=== PATIENT | male | born 1960 | race African-American/Black ===

== ENCOUNTER 2022-03-20 07:54 | Emergency (ER) | payer SELFPAY ==
[~2022-03-20] VITALS: Ht 165.1 cm; Wt 59.0 kg
[2022-03-20 08:07] VITALS: BP 175/112
[2022-03-20 08:15] VITALS: BP 164/110
[2022-03-20 08:30] VITALS: BP 158/103
[2022-03-20] MEDS ORDERED: OFLOXACIN0.3 % OD (08:32)
== END 2022-03-20 08:50 | disposition home or self-care (01) | DRG 125 ==
LOC: ED 07:54
DX: S05.01XA Injury of conjunctiva and corneal abrasion without foreign body, right eye, initial encounter (principal); X58.XXXA Exposure to other specified factors, initial encounter